=== PATIENT | male | born 1975 | race Caucasian/White ===

== ENCOUNTER 2018-03-09 05:34 | Day surgery (SDC) | payer OTHER ==
[~2018-03-09] VITALS: Ht 182.9 cm; Wt 96.4 kg
[2018-03-09] MEDS ORDERED: LACTATED RINGERS 1,000 ML IV SCH (06:25)
[2018-03-09 06:28] VITALS: BP 149/88
[2018-03-09] MEDS ORDERED: FENTANYL PF 250 MCG/5ML ONE (06:36)
[2018-03-09] MEDS ORDERED: MIDAZOLAM 1 MG/ML, 2ML ONE (06:36)
[2018-03-09] MEDS ORDERED: GLYCOPYRROLATE 0.2MG/1ML, 5ML ONE (06:39)
[2018-03-09] MEDS ORDERED: ROCURONIUM 10MG/ML,5ML ONE (06:39)
[2018-03-09] MEDS ORDERED: NEOSTIGMINE 1 MG/ML, 10ML ONE (06:39)
[2018-03-09] MEDS ORDERED: CEFAZOLIN 1,000 MG ONE (06:39)
[2018-03-09] MEDS ORDERED: PROPOFOL 10 MG/ML, 20ML ONE (06:39)
[2018-03-09] MEDS ORDERED: FISH OIL PO (06:54)
[2018-03-09] MEDS ORDERED: MULTIVITAMIN PO (06:54)
[2018-03-09] MEDS ORDERED: PROBIOTICS PO (06:54)
[2018-03-09] MEDS ORDERED: OXYMETAZOLINE NASAL SPRAY 0.05%, 15ML ONE (06:55)
[2018-03-09] MEDS ORDERED: LIDOCAINE 1%-EPI 1:100K, 30ML ONE (06:55)
[2018-03-09] MEDS ORDERED: NEO/BACI/POLY/HC OINT 15GM ONE (06:55)
[2018-03-09] MEDS ORDERED: ONDANSETRON ODT 8 MG PO PRN (07:30)
[2018-03-09] MEDS ORDERED: PROMETHAZINE 25 MG/ML, 1ML IV PRN (07:30)
[2018-03-09] MEDS ORDERED: MEPERIDINE/PF 25MG/0.5ML IVPush PRN (07:30)
[2018-03-09] MEDS ORDERED: ACETAMINOPHEN 325 MG TABLET PO PRN (07:30)
[2018-03-09] MEDS ORDERED: PROMETHAZINE 25 MG/ML, 1ML IM PRN ×2 (07:30)
[2018-03-09] MEDS ORDERED: HYDROmorphone 2 MG/ML, 1ML IVPush PRN (07:30)
[2018-03-09] MEDS ORDERED: OXYcodone 5 MG/5 ML ORAL.SOL UDC PO PRN (07:30)
[2018-03-09] MEDS ORDERED: MORPHINE SULFATE 4 MG/ML, 1ML IVPush PRN (07:30)
[2018-03-09] MEDS ORDERED: hydrALAzine 20 MG/ML, 1ML IV PRN (07:30)
[2018-03-09] MEDS ORDERED: ONDANSETRON 2MG/ML, 2ML IV PRN (07:30)
[2018-03-09] MEDS ORDERED: LABETALOL 5MG/ML, 20ML IV PRN (07:30)
[2018-03-09] MEDS ORDERED: PROMETHAZINE 25 MG SUPP PR PRN (07:30)
[2018-03-09] MEDS ORDERED: PROMETHAZINE 12.5 MG SUPP PR PRN (07:30)
[2018-03-09] MEDS ORDERED: LABETALOL 20 MG/4 ML ONE (07:34)
[2018-03-09] MEDS ORDERED: SUGAMMADEX 200 MG/2 ML IVPush ONE (08:02)
[2018-03-09] MEDS ORDERED: OXYcodone 5 MG/5 ML ORAL.SOL UDC ONE (08:19)
[2018-03-09] MEDS ORDERED: FENTANYL PF 100 MCG/2ML ONE (08:24)
[2018-03-09] MEDS: FENTANYL PF 100 MCG/2ML IV PRN ×3 (08:26→08:56)
== END 2018-03-09 10:50 | disposition home or self-care (01) ==
LOC: OUT 05:34
PROVIDERS: ATTEND Otolaryngology
DX: J34.3 Hypertrophy of nasal turbinates (principal); J34.89 Other specified disorders of nose and nasal sinuses; J32.4 Chronic pansinusitis; Z88.0 Allergy status to penicillin
CPT/HCPCS: 30140; 30220; 31254; 31256; 31276; 31299; C1726; J0690; J2250; J2405; J2704; J2710; J3010; J3490; J7120

== ENCOUNTER 2019-07-10 13:50 | Outpatient (CLI) | payer OTHER ==
[~2019-07-10 13:50] MED LIST: FISH OIL PO; MULTIVITAMIN PO; PROBIOTICS PO
== END 2019-07-10 23:59 | disposition home or self-care (01) ==
LOC: CFH 13:50
PROVIDERS: ATTEND Physician Assistant
DX: S52.614A Nondisplaced fracture of right ulna styloid process, initial encounter for closed fracture (principal); S52.591A Other fractures of lower end of right radius, initial encounter for closed fracture; X58.XXXA Exposure to other specified factors, initial encounter; Y93.89 Activity, other specified; Y92.89 Other specified places as the place of occurrence of the external cause; Y99.8 Other external cause status